=== PATIENT | female | born 1980 | race Hispanic/Latino ===

== ENCOUNTER 2018-07-05 09:40 | Emergency (ER) | payer OTHER ==
[~2018-07-05 09:40] MED LIST: albute IH; tums CHEW
[2018-07-05] MEDS ORDERED: METHYLPREDNISOLONE SOD SUCC 125MG/2ML VIAL ONE (10:48)
[2018-07-05] MEDS ORDERED: IPRATROPIUM/ALBUTEROL SULFATE 3 ML SOLUTION IH ONE (10:50)
== END 2018-07-05 12:51 | disposition home or self-care (01) ==
LOC: EDH 09:40
DX: J45.21 Mild intermittent asthma with (acute) exacerbation (principal); Z88.8 Allergy status to other drugs, medicaments and biological substances; Z98.51 Tubal ligation status
CPT/HCPCS: 94640; 96372; 99283; J2930

== ENCOUNTER 2020-03-02 11:48 | Emergency (ER) | payer MEDICAID | END 2020-03-02 15:02 | disposition left against medical advice (07) | LOC: EDH 11:48 | DX: J02.9 Acute pharyngitis, unspecified (principal); J45.909 Unspecified asthma, uncomplicated; Z88.1 Allergy status to other antibiotic agents; Z88.8 Allergy status to other drugs, medicaments and biological substances; Z53.21 Procedure and treatment not carried out due to patient leaving prior to being seen by health care provider ==

== ENCOUNTER 2023-08-14 12:18 | Emergency (ER) | payer MEDICAID, OTHER ==
[~2023-08-14] VITALS: Ht 162.6 cm; Wt 81.6 kg
[2023-08-14 12:25] VITALS: BP 127/85; PULSE 93; RESP 16
[2023-08-14] MEDS ORDERED: NAPR375T6 PO (14:22)
[2023-08-14] MEDS: IBUPROFEN 600 MG TABLET PO ONE (14:36)
== END 2023-08-14 14:48 | disposition home or self-care (01) ==
LOC: EDH 12:18
DX: S46.912A Strain of unspecified muscle, fascia and tendon at shoulder and upper arm level, left arm, initial encounter (principal); F41.9 Anxiety disorder, unspecified; Z88.1 Allergy status to other antibiotic agents; X58.XXXA Exposure to other specified factors, initial encounter; Y93.89 Activity, other specified; Y92.89 Other specified places as the place of occurrence of the external cause; Y99.8 Other external cause status
CPT/HCPCS: 73030; 81025